=== PATIENT | female | born 1970 | race Caucasian/White ===

== ENCOUNTER 2017-11-10 10:24 | Inpatient (IN) | payer BC ==
[2017-11-10] MEDS ORDERED: Acetaminophen 500 MG Tab PO ONE (11:00)
[2017-11-10] MEDS ORDERED: Scopolamine 1.5 MG Transdermal Patch TOP SCH (11:00)
[2017-11-10] MEDS ORDERED: Dextrose 5%-Lactated Ringers 1,000 ML IV SCH (11:45)
[2017-11-10] MEDS ORDERED: fentaNYL 250 MCG/5 ML SDV ONE ×2 (11:58→13:00)
[2017-11-10] MEDS ORDERED: Propofol 200 MG/20 ML SDV ONE (11:59)
[2017-11-10] MEDS ORDERED: Dexamethasone 4 MG/ML SDV ONE (11:59)
[2017-11-10] MEDS ORDERED: Rocuronium 50 MG/5 ML Vial ONE (11:59)
[2017-11-10] MEDS ORDERED: Ondansetron 4 MG/2 ML SDV ONE (11:59)
[2017-11-10] MEDS ORDERED: Glycopyrrolate 0.2 MG/ML 5 ML MDV ONE (11:59)
[2017-11-10] MEDS ORDERED: Neostigmine Methylsulfate 1 MG/ML 5 ML Syringe ONE (11:59)
[2017-11-10] MEDS ORDERED: Succinylcholine 200 MG/10 ML MDV ONE (11:59)
[2017-11-10] MEDS ORDERED: Ketamine 500 MG/5 ML MDV IV SCH (12:00)
[2017-11-10] MEDS ORDERED: ceFAZolin 2 GM in Sodium Chloride 0.9% 50 ML IV ONE (12:00)
[2017-11-10] MEDS ORDERED: Ropivacaine 50 ML, Dexamethasone 8 MG, EPINEPHrine 0.4 MG, Sodium Chloride 0.9% 27.6 ML NERVRT SCH ×4 (12:00)
[2017-11-10] MEDS ORDERED: HYDROmorphone/Normal Saline 15 MG/30 ML PCA IV PRN (12:45)
[2017-11-10] MEDS ORDERED: Naloxone 0.4 MG/ML SDV IV PRN (12:52)
[2017-11-10] MEDS ORDERED: Lidocaine 2% 100 MG/5 ML Syringe ONE (13:16)
[2017-11-10] MEDS ORDERED: Lactated Ringers 1,000 ML ONE (13:17)
[2017-11-10] MEDS ORDERED: Labetalol 20 MG/4 ML Syringe ONE (13:41)
[2017-11-10] MEDS ORDERED: Ondansetron 4 MG/2 ML SDV IV PRN (15:36)
[2017-11-10] MEDS: Dextrose 5%-Lactated Ringers 1,000 ML IV SCH ×2 (15:37→22:49)
[2017-11-10] MEDS: VERIFY SCOP PATCH TOP SCH (17:13)
[2017-11-10] MEDS: Metoclopramide 10 MG/2 ML SDV IV SCH (17:13)
[2017-11-10] MEDS: Pantoprazole 40 MG Vial IV SCH (17:13)
[2017-11-10] MEDS: ceFAZolin 2 GM in Sodium Chloride 0.9% 50 ML IV SCH (20:47)
[2017-11-10] MEDS: Metoprolol Tartrate 50 MG Tab PO SCH (22:08)
[2017-11-11] MEDS: Metoclopramide 10 MG/2 ML SDV IV SCH ×3 (02:58→17:34)
[2017-11-11] MEDS: ceFAZolin 2 GM in Sodium Chloride 0.9% 50 ML IV SCH ×2 (03:01→12:58)
[2017-11-11] MEDS: Dextrose 5%-Lactated Ringers 1,000 ML IV SCH ×3 (06:04→22:55)
[2017-11-11] MEDS: Venlafaxine 37.5 MG Cap.ER PO SCH (08:04)
[2017-11-11] MEDS: Hydrochlorothiazide 25 MG Tab PO SCH (08:06)
[2017-11-11] MEDS: Metoprolol Tartrate 50 MG Tab PO SCH ×2 (08:07→20:21)
[2017-11-11] MEDS: VERIFY SCOP PATCH TOP SCH (08:09)
[2017-11-11] MEDS: Docusate Sodium 100 MG Cap PO SCH ×2 (12:54→20:21)
[2017-11-11] MEDS: Pantoprazole 40 MG Vial IV SCH (17:34)
[2017-11-11] MEDS ORDERED: Docusate Sodium 100 MG Cap PO SCH (21:00)
[2017-11-11] MEDS: Acetaminophen/oxyCODONE 325-5 MG Tab PO PRN (22:54)
[2017-11-12] MEDS: Metoclopramide 10 MG/2 ML SDV IV SCH (02:49)
[2017-11-12] MEDS: Acetaminophen/oxyCODONE 325-5 MG Tab PO PRN ×2 (02:49→07:34)
[2017-11-12 07:29] VITALS: BP 108/61
[2017-11-12] MEDS: Venlafaxine 37.5 MG Cap.ER PO SCH (08:15)
[2017-11-12] MEDS: Metoprolol Tartrate 50 MG Tab PO SCH (08:15)
[2017-11-12] MEDS: Docusate Sodium 100 MG Cap PO SCH (08:16)
[2017-11-12] MEDS: Hydrochlorothiazide 25 MG Tab PO SCH (08:17)
[2017-11-12] MEDS: VERIFY SCOP PATCH TOP SCH (08:18)
--- NOTE | 2017-11-13 14:35 | PN ---
DATE OF SERVICE: 11/11/2017 The patient is postop day #1 from a laparoscopic Yesica fundoplication. No major problems were noted overnight. She is tolerating liquids satisfactorily. We will go up to a full- liquid diet, oral pain medication, likely will be ready for discharge home tomorrow. Nino Du MD /[id number]
--- NOTE | 2017-11-13 15:47 | DISCH ---
FINAL DIAGNOSES: 1. Gastroesophageal reflux disease refractory to medical management associated with paraesophageal diaphragmatic hernia. 2. Mediastinal lipoma. 3. Peritoneal nodule on the diaphragm, left of the esophagogastric junction. 4. History of attention-deficit disorder. 5. History of hypertension. OPERATIVE PROCEDURES: Diagnostic laparoscopy with: 1. Repair of paraesophageal diaphragmatic hernia with mesh with Yesica fundoplication. 2. Excision of peritoneal nodule adjacent to the esophagogastric junction. 3. Excision of mediastinal lipoma. HOSPITAL COURSE: This is a 47-year-old presenting with longstanding gastroesophageal reflux disease refractory to medical management. After preoperative evaluation and discussion, she wished to proceed with a Yesica fundoplication. This was done with repair of paraesophageal hernia with mesh. She also had a small peritoneal nodule adjacent to the esophagogastric junction which was excised for diagnostic purposes and excision of mediastinal lipoma. Postoperatively, no major problems were noted. Plan will be to discharge the patient to home at this time. Continue with full liquid diet for 2 weeks postoperatively. She will be given her usual home medications plus Percocet 5/325 mg 1 to 2 tabs q.4 hours p.r.n. pain, #40. She would be instructed to discontinue the Protonix after 1 week, and she has the scopolamine patch which she will be instructed to remove tomorrow. Level of activity was reviewed with the patient and follow up with Dr. Du in [facility] on 11/23/2017.
--- NOTE | 2017-11-17 10:53 | OR ---
DATE OF PROCEDURE: 11/10/2017 PREOPERATIVE DIAGNOSIS: Gastroesophageal reflux disease refractory to medical management. POSTOPERATIVE DIAGNOSES: 1. Paraesophageal diaphragmatic hernia with gastroesophageal reflux disease refractory to medical management. 2. Peritoneal nodule on the diaphragm left of the esophagogastric junction. 3. Mediastinal lipoma. OPERATIVE PROCEDURE: Diagnostic laparoscopy with: 1. Repair of paraesophageal diaphragmatic hernia with mesh including Yesica fundoplication (84409). 2. Excision of diaphragmatic peritoneal nodule (42808). 3. Excision of mediastinal lipoma (88449). ANESTHESIA: General. INDICATION FOR PROCEDURE: This is a 47-year-old female presenting with gastroesophageal reflux disease refractory to medical management. After preop evaluation and discussion, she wished to proceed with a Yesica fundoplication. Potential risks of the procedure including bleeding, infection, injury to underlying viscera, problems with fundoplication such as dysphagia, gas-bloat syndrome, disorders of gastric emptying rate, as well as possible incomplete relief and reflux symptoms were all reviewed, and the patient wishes to proceed. DETAILS OF THE PROCEDURE: The patient was taken to the operating room and placed in a supine position. After general endotracheal anesthesia was induced, converted to a lithotomy position. A Mulligan catheter was inserted, which was to be removed at the conclusion of the procedure and the abdomen was prepped and draped. A 15 cm inferior and 5 cm left of xiphoid process, transverse incision was made and the peritoneal cavity entered under direct vision with Optiview trocar, inflated to 15 mmHg pressure with CO2. Laparoscope was then reinserted. No underlying trocar insertion site injuries were seen. Following this, bilateral subcostal transversus abdominis plane block replaced with direct visualization of the needle on the correct plane and the standard solution injected bilaterally. Four additional trocars were placed across the mid abdomen and the liver was retracted anteriorly. The patient was noted to have roughly 3 mm peritoneal nodule over the diaphragm just left of the esophagogastric junction or esophageal hiatus. This was excised and sent for histologic evaluation. The patient was noted to have a significant paraesophageal component to hiatal hernia with prolapse of the gastric fundus at the anterior course of the esophagus and some omentum also up into that defect. This was reduced. The peritoneum overlying the size reflected downward. The peritoneum on the side of the distal esophagus was then incised with care taken to avoid injury to the vagus nerves. The esophagus was then freed up from the crura on each side and then retroesophageal window created. During course of the dissection a mediastinal lipoma was encountered and this was excised and sent as a separate specimen. The attachments to the esophagus were then freed up with a Harmonic scalpel to the point there was a roughly 5 cm intraabdominal esophageal length. The crural repair was accomplished with 0 Ethibond sutures reinforced with PTFE pledgets. Due to the size of the defect, size XT mesh was configured so it overlayed the crural repair and was fixed there with titanium tacking screws. The non-adherent side of the mesh was placed facing the esophagus. The greater omentum was then taken down from the greater curvature of the stomach, beginning around the midportion of the stomach. This dissection continued with the scalpel protruding through the short gastric vessels including the highest posterior short gastric vessels. This resulted in a nicely mobile fundus which was retrieved through the retroesophageal window. Anesthesia then placed a guide wire orally through the length of the esophagus into the stomach. Over this, a 54-Faroese Savary dilator was positioned. A 3-stitch 2 cm fundoplication was then accomplished with 0 Ethibond sutures reinforced with PTFE pledgets. Each of the sutures included bites of the underlying esophagus and all were affixed in position. The uppermost suture was then also incorporated to the overlying diaphragm and one additional suture to the left side of the fundoplication overlying the diaphragm with the same stitch pledget combination was then placed and at that point, the dilators were removed. The fundoplication was inspected and found to be satisfactorily floppy. At that point, the trocars were essentially removed and then the peritoneal cavity deflated. The incision was closed with 4-0 Vicryl skin stitch. Dressing was applied. The patient was taken to the recovery room in satisfactory condition. Nino Du MD /[id number]
== END 2017-11-12 09:15 | disposition home or self-care (01) | DRG 220 ==
LOC: JP.MS 10:24 → JP.SDS 10:24 → JP.MS 13:30 → EDSTATUS 13:30
PROVIDERS: ADMIT Surgery; ATTEND Surgery
PROC: 0DV44ZZ Restriction of Esophagogastric Junction, Percutaneous Endoscopic Approach (ICD-10-PCS; principal; 2017-11-10)
PROC: 0BQT4ZZ Repair Diaphragm, Percutaneous Endoscopic Approach (ICD-10-PCS; 2017-11-10)
PROC: 0DBW4ZX Excision of Peritoneum, Percutaneous Endoscopic Approach, Diagnostic (ICD-10-PCS; 2017-11-10)
PROC: 3E0T3BZ Introduction of Anesthetic Agent into Peripheral Nerves and Plexi, Percutaneous Approach (ICD-10-PCS; 2017-11-10)
PROC: 0WBC4ZX Excision of Mediastinum, Percutaneous Endoscopic Approach, Diagnostic (ICD-10-PCS; 2017-11-10)
DX: K21.9 Gastro-esophageal reflux disease without esophagitis (principal); K44.9 Diaphragmatic hernia without obstruction or gangrene; D17.79 Benign lipomatous neoplasm of other sites; K66.8 Other specified disorders of peritoneum; F98.8 Other specified behavioral and emotional disorders with onset usually occurring in childhood and adolescence; I10 Essential (primary) hypertension
CPT/HCPCS: 36415; 80053; 85027; 88304; 88305; 88341; 88342; 94762; A9270-GY; C1781; C9113; J0171; J0330; J0690; J1100; J1170; J2001; J2405; J2704; J2710; J2765; J2795; J3010; J3490; J7042; J7050; J7120

== ENCOUNTER 2020-10-07 06:22 | Day surgery (SDC) | payer BC ==
[2020-10-07] MEDS ORDERED: Lidocaine 1% with EPINEPHrine 1:100,000 50 ML MDV ONE (06:31)
[2020-10-07] MEDS ORDERED: Bupivacaine 0.5% 50 ML MDV ONE (06:31)
[2020-10-07] MEDS ORDERED: Acetaminophen 500 MG Tab PO ONE (06:45)
[2020-10-07] MEDS ORDERED: Propofol 200 MG/20 ML SDV ONE ×2 (06:52→07:48)
[2020-10-07] MEDS ORDERED: fentaNYL 100 MCG/2 ML SDV ONE (06:52)
[2020-10-07] MEDS ORDERED: Midazolam 1 MG/ML 2 ML SDV ONE (06:52)
[2020-10-07] MEDS ORDERED: Dextrose 5%-Lactated Ringers 1,000 ML IV SCH (07:00)
[2020-10-07] MEDS ORDERED: ceFAZolin 2 GM in Premix Bag 1 BAG IV ONE (07:30)
[2020-10-07 09:15] VITALS: BP 130/81; PULSE 52
--- NOTE | 2020-10-19 13:51 | OR ---
DATE OF PROCEDURE: 10/07/2020 SURGEON: Nino Du MD PREOPERATIVE DIAGNOSIS: New diagnosis of follicular lymphoma, requiring tissue for further tumor workup. POSTOPERATIVE DIAGNOSIS: New diagnosis of follicular lymphoma, requiring tissue for further tumor workup. OPERATIVE PROCEDURE: Right inguinal lymph node biopsy ([id number]). ANESTHESIA: Local plus IV sedation. INDICATION FOR PROCEDURE: The patient recently diagnosed with follicular lipoma. To further characterize the tumor, lymph node biopsy is requested. Potential risks including bleeding, infection, injury to nerves and/or following the procedure were reviewed and the patient wishes to proceed. DETAILS OF PROCEDURE: The patient was taken to the operating room and placed in a supine position. IV sedation was administered, after which the lower abdomen and groin areas were prepped and draped. The palpable lymph nodes in the right inguinal area were then identified and the skin overlying was anesthetized with 1% lidocaine mixed with Marcaine. Later, an incision just above the inguinal crease was then made and carried down through the skin and subcutaneous tissue. What appeared to be 2 confluent nodes measuring around 3 to 4 cm in total dimension were then excised using electrocautery. The lymphatic vessels specimen were divided and tied with 4-0 Vicryl ties and the specimen delivered from the field. A small edge of the sujey tissue was excised and sent for microbiologic workup. Incision was then closed with 3-0 and 4-0 Vicryl stitch deep and 4-0 Vicryl subcuticular stitch, and a surgical glue applied. The patient was taken to the recovery room in satisfactory condition. Nino Du MD /[id number]
== END 2020-10-07 09:15 | disposition home or self-care (01) ==
LOC: JP.SDS 06:22
PROVIDERS: ATTEND Surgery
DX: C82.95 Follicular lymphoma, unspecified, lymph nodes of inguinal region and lower limb (principal); I10 Essential (primary) hypertension
CPT/HCPCS: 38531; 87070; 87102; 87205; 88305; 88341; 88342; 88360; A9270; J0690; J2250; J2704; J3010; J3490; J7121

== ENCOUNTER 2020-10-16 06:26 | Day surgery (SDC) | payer BC ==
[2020-10-16] MEDS ORDERED: Acetaminophen 500 MG Tab PO ONE (06:30)
[2020-10-16] MEDS ORDERED: Bupivacaine 0.5% 50 ML MDV ONE (06:49)
[2020-10-16] MEDS ORDERED: Lidocaine 1% with EPINEPHrine 1:100,000 50 ML MDV ONE (06:50)
[2020-10-16] MEDS ORDERED: Dextrose 5%-Lactated Ringers 1,000 ML IV SCH (07:00)
[2020-10-16] MEDS ORDERED: Propofol 200 MG/20 ML SDV ONE ×5 (07:13→08:32)
[2020-10-16] MEDS ORDERED: fentaNYL 100 MCG/2 ML SDV ONE (07:13)
[2020-10-16] MEDS ORDERED: Midazolam 1 MG/ML 2 ML SDV ONE ×2 (07:13→08:18)
[2020-10-16] MEDS ORDERED: Linezolid 600 MG in Premix Bag 1 BAG IV ONE (07:45)
[2020-10-16 09:38] VITALS: BP 124/76; PULSE 57
--- NOTE | 2020-10-27 15:13 | OR ---
DATE OF PROCEDURE: 10/16/2020 SURGEON: Nino Du MD PREOPERATIVE DIAGNOSIS: Indication for central venous access. POSTOPERATIVE DIAGNOSIS: Indication for central venous access. OPERATIVE PROCEDURE: Placement of Bard port via right subclavian vein approach. ANESTHESIA: Local plus IV sedation. INDICATION FOR PROCEDURE: This is a 50-year-old presenting with a new diagnosis of lymphoma, will be receiving some upcoming chemotherapy. Given this, a central venous access was requested and the plan is to proceed with placement of Bard PowerPort. The potential risks including bleeding, infection, pneumohemothorax, or vascular injury were all reviewed along with possibility or problems with port becoming infected or occluded over time were all gone over and the patient wishes to proceed. DETAILS OF PROCEDURE: The patient was taken to the operating room and placed in a supine position. After IV sedation was administered, the upper chest and neck areas were prepped and draped. Initially, the left subclavian area was anesthetized with 1% lidocaine. The subclavian vein was cannulated several times, but we could not get past what appeared to be the area around the innominate vein to the superior vena cava junction. With the wire, I suspect there was probably some lymphadenopathy in that area which was precluding adequate passage of the wire through that area. Given this, attention was taken to the right side. Right subclavian vein was cannulated on this side. The wire was able to then be manipulated down into the superior vena cava. Some additional local was then injected and a transverse infraclavicular incision was made and carried down through the skin and subcutaneous tissue. Pocket was then constructed for placement of the port. The port was then assembled and cut such that the tip lay in the upper right atrium. Over the introducer and peel-away catheter system, the Bard port catheter was then placed. Fluoroscopy confirmed this to be within the right atrium, and at that point, the port site was closed with 2 layers of 3-0 Vicryl stitch deep and 4-0 Vicryl subcuticular stitch. Prior to conclusion of the procedure, port was aspirated and good blood return was confirmed and once again flushed with heparinized saline. The patient tolerated the procedure well. Nino Du MD /[id number]
== END 2020-10-16 09:55 | disposition home or self-care (01) ==
LOC: JP.SDS 06:26
PROVIDERS: ATTEND Surgery
DX: C85.90 Non-Hodgkin lymphoma, unspecified, unspecified site (principal); I10 Essential (primary) hypertension; Z87.891 Personal history of nicotine dependence
CPT/HCPCS: 36561; A9270; C1788; J1642; J2020; J2250; J2704; J3010; J3490; J7121

== ENCOUNTER 2020-10-31 08:56 | Emergency (ER) | payer BC ==
[2020-10-31] MEDS ORDERED: Lactated Ringers 500 ML IV SCH (10:00)
[2020-10-31] MEDS ORDERED: Potassium Chloride 20 MEQ Tab.ER PO ONE (10:01)
--- NOTE | 2020-10-31 10:34 | EDM.PDOC ---
ED HPI GENERAL MEDICAL PROBLEM - General Chief Complaint: Cardiovascular Problem Stated Complaint: LOW PULSE Time Seen by Provider: 10/31/20 10:10 Source of Information: Reports: Patient, Old Records, RN History Limitations: Reports: No Limitations - History of Present Illness INITIAL COMMENTS - FREE TEXT/NARRATIVE: 50 yo female with a pHx of PVC's presents from infusion therapy for bradycardia with PVC's. Her HR was down into the mid to upper 30's for them. She is on metoprolol tartrate prescribed several yrs ago for her PVC's and sometime ago due a sense by her that the dose was too high the dose was changed from 100 mg bid to 100 mg qd. She takes this med in the morning only since then. She is being tx'd in infusion tx with Bendamustine/Rituxan for follicular cell lymphoma dx this past May. Onset: Unknown/Unsure (was noted to possibly be a change from what had been observed in infusion tx in the past. 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 (see below) (Had 500 ml of NS in infusion tx b efore ER arrival) - Related Data Allergies Allergy/AdvReac Type Severity Reaction Status Date / Time No Known Allergies Allergy Verified 10/31/20 09:29 Home Meds: Home Meds Metoprolol Tartrate 100 mg PO DAILY 12/25/12 [History] hydroCHLOROthiazide [Hydrochlorothiazide] 25 mg PO DAILY 12/25/12 [History] Halobetasol Propionate 1 applic TOP BID PRN 09/30/17 [History] Acyclovir 400 mg PO DAILY 10/15/20 [History] Indomethacin [Indocin] 50 mg PO TID PRN 10/15/20 [History] Ondansetron [Zofran] 8 mg PO Q8H PRN 10/15/20 [History] Prochlorperazine [Compazine] 10 mg PO Q6H PRN 10/15/20 [History] Sulfamethoxazole/Trimethoprim [Sulfamethoxazole-Tmp Ds Tablet] 1 tab PO MOWEFR 10/15/20 [History] allopurinoL [Zyloprim] 300 mg PO BID 10/15/20 [History] Ciprofloxacin [Ciprofloxacin HCl] 500 mg PO ASDIRECTED PRN 10/16/20 [History] Past Medical History HEENT History: Reports: Impaired Vision Cardiovascular History: Reports: Arrhythmia, Hypertension Gastrointestinal History: Reports: Gastritis, GERD, Other (See Below) Other Gastrointestinal History: Hx of Barretts esophagus Genitourinary History: Reports: None 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: Dysfunctional Uterine Bleeding, Fibroids, Musculoskeletal History: Reports: Gout, Other (See Below) Other Musculoskeletal History: L foot pain Psychiatric History: Reports: ADHD Endocrine/Metabolic History: Reports: Obesity/BMI 30+ Oncologic (Cancer) History: Reports: Lymphoma Dermatologic History: Reports: Eczema Other Dermatologic History: generalized rash - Infectious Disease History Infectious Disease History: Reports: Chicken Pox - Past Surgical History HEENT Surgical History: Reports: LASIK Cardiovascular Surgical History: Reports: None GI Surgical History: Reports: EGD, Yesica Fundoplication, Other (See Below) Other GI Surgeries/Procedures: Browne pH Female Surgical History: Reports: Breast Biopsy, Hysterectomy, Salpingo- Oophorectomy Endocrine Surgical History: Reports: None Dermatological Surgical History: Reports: Other (See Below) Social & Family History - Family History Family Medical History: No Pertinent Family History HEENT: Reports: None - Tobacco Use Tobacco Use Status *Q: Current Some Day Tobacco User Years of Tobacco use: 30 Packs/Tins Daily: 0.1 - Caffeine Use Caffeine Use: Reports: Coffee Other Caffeine Use: 2-4 cups coffee per day - Alcohol Use Days Per Week of Alcohol Use: 3 Number of Drinks Per Day: 2 Total Drinks Per Week: 6 - Recreational Drug Use Recreational Drug Use: No ED ROS GENERAL - Review of Systems Review Of Systems: See Below Constitutional: Reports: Other (felt a little shaky today) HEENT: Reports: No Symptoms Respiratory: Reports: No Symptoms Cardiovascular: Reports: No Symptoms. Denies: Palpitations (is unaware) Endocrine: Reports: No Symptoms GI/Abdominal: Reports: No Symptoms : Reports: No Symptoms Musculoskeletal: Reports: No Symptoms Skin: Reports: No Symptoms Neurological: Reports: No Symptoms Psychiatric: Reports: No Symptoms ED EXAM, GENERAL - Physical Exam Exam: See Below Exam Limited By: No Limitations General Appearance: Alert, WD/WN, No Apparent Distress Eye Exam: Bilateral Eye: Normal Inspection Ears: Normal External Exam, Normal Canal, Hearing Grossly Normal Ear Exam: Bilateral Ear: Auricle Normal, Canal Normal Nose: Normal Inspection, No Blood Throat/Mouth: Normal Inspection, Normal Lips, Normal Voice, No Airway Compromise Head: Atraumatic, Normocephalic Neck: Normal Inspection Respiratory/Chest: No Respiratory Distress, Lungs Clear, Normal Breath Sounds, No Accessory Muscle Use Cardiovascular: Regular Rate, Rhythm, No Edema, Other (extra beats noted, HR has increased since being in infusion therapy) Extremities: Normal Inspection Neurological: Alert, Oriented, CN II-XII Intact, Normal Cognition, No Motor/Sensory Deficits Psychiatric: Normal Affect, Normal Mood Skin Exam: Warm, Dry, Intact, Normal Color, No Rash Course - Vital Signs Last Recorded V/S: Last Vital Signs Temp 36.8 C 10/31/20 09:35 Pulse 66 10/31/20 10:59 Resp 18 10/31/20 09:35 BP 124/74 10/31/20 10:59 Pulse Ox 99 10/31/20 10:59 - Orders/Labs/Meds Orders: Active Orders 24 hr Category Date Time Status Cardiac Monitoring [RC] .As Directed Care 10/31/20 09:48 Active Lactated Ringers [Ringers, Lactated] 500 ml Med 10/31/20 10:00 Active IV ASDIRECTED Medication Orders Lactated Ringer's (Ringers, Lactated) 500 mls @ 1,000 mls/hr IV ASDIRECTED IGNACIO Last Admin: 10/31/20 10:21 Dose: 1,000 mls/hr Documented by: [email or web address] Labs: Laboratory Tests 10/31/20 10/31/20 10/31/20 Range/Units 08:24 08:24 08:24 Magnesium 1.5 L (1.8-2.4) mg/dL Troponin I < 0.017 (0.000-0.056) ng/mL TSH, Ultra Sensitive 4.159 H (0.358-3.740) uIU/mL Meds: Medications Generic Name Dose Route Start Last Admin Trade Name Freq PRN Reason Stop Dose Admin Lactated Ringer's 500 mls @ 1,000 mls/hr 10/31/20 10:00 10/31/20 10:21 Ringers, Lactated IV 1,000 mls/hr ASDIRECTED IGNACIO Administration Discontinued Medications Generic Name Dose Route Start Last Admin Trade Name Fredy PRN Reason Stop Dose Admin Magnesium Sulfate 2 gm/ Premix 50 mls @ 25 mls/hr 10/31/20 10:39 10/31/20 10:57 IV 10/31/20 12:38 25 mls/hr ONETIME ONE Administration Magnesium Oxide 800 mg 10/31/20 10:39 10/31/20 10:48 Magnesium Oxide 400 Mg Tab PO 10/31/20 10:40 800 mg ONETIME ONE Administration Potassium Chloride 20 meq 10/31/20 10:01 10/31/20 10:21 Potassium Chloride 20 Meq Tab.Er PO 10/31/20 10:02 20 meq ONETIME ONE Administration - Re-Assessments/Exams Free Text/Narrative Re-Assessment/Exam: 10/31/20 13:21 Appears to have a lot less PVC's after supplementing with magnesium IV and orally. Will order a Holter and discharge on a switch to the succinate form of metoprolol as well as magnesium supplementation. Departure - Departure Time of Disposition: 13:25 Disposition: Home, Self-Care 01 Condition: Good Clinical Impression: PVC's (premature ventricular contractions), Hypomagnesemia Instructions: Hypomagnesemia, Premature Ventricular Contraction Referrals: Millie Cuellar PA [Primary Care Provider] - Forms: ED Department Discharge Additional Instructions: Replace your metoprolol tartrate with metoprolol succinate. Take a magnesium supplement 500 mg every day before bed. I have ordered a Holter monitor for you, turn this in for analysis afterwards. F/U later with either your primary or cardiology(may need a referral from your doctor if they feel it is needed). Return as needed. Sepsis Event Note (ED) - Evaluation Sepsis Screening Result: No Definite Risk - Focused Exam Vital Signs: Vital Signs Temp Pulse Resp BP Pulse Ox 10/31/20 10:59 66 124/74 99 10/31/20 09:35 36.8 C 45 L 18 115/70 98 10/31/20 09:23 36.8 C 45 L 18 115/70 98 - My Orders Last 24 Hours: My Active Orders 10/31/20 09:48 Cardiac Monitoring [RC] .As Directed 10/31/20 10:00 Lactated Ringers [Ringers, Lactated] 500 ml IV ASDIRECTED - Assessment/Plan Last 24 Hours: My Active Orders 10/31/20 09:48 Cardiac Monitoring [RC] .As Directed 10/31/20 10:00 Lactated Ringers [Ringers, Lactated] 500 ml IV ASDIRECTED
[2020-10-31] MEDS ORDERED: Magnesium Oxide 400 MG Tab PO ONE (10:39)
[2020-10-31] MEDS ORDERED: Magnesium Sulfate/Water 2 GM in Premix Bag 1 BAG IV ONE (10:39)
[2020-10-31 13:23] VITALS: BP 112/42; PULSE 48
== END 2020-10-31 14:10 | disposition home or self-care (01) ==
LOC: JP.ED 08:56
DX: I49.3 Ventricular premature depolarization (principal); E83.42 Hypomagnesemia; M10.9 Gout, unspecified; E66.9 Obesity, unspecified; Z72.0 Tobacco use; Z79.899 Other long term (current) drug therapy; Z68.34 Body mass index [BMI] 34.0-34.9, adult
CPT/HCPCS: 36415; 83735; 84443; 84484; 93225; 93226; 96365; 96366; 99284; A9270; J3475; J7120

== ENCOUNTER 2022-11-18 05:53 | Day surgery (SDC) | payer BC ==
[2022-11-18] MEDS ORDERED: Bupivacaine 0.5% 50 ML MDV ONE (06:37)
[2022-11-18] MEDS ORDERED: Lidocaine 1% with EPINEPHrine 1:100,000 50 ML MDV ONE (06:38)
[2022-11-18] MEDS ORDERED: Bacitracin Oint 1 GM U/D Packet ONE (06:39)
[2022-11-18] MEDS ORDERED: Dextrose 5%-Lactated Ringers 1,000 ML IV SCH (07:00)
[2022-11-18] MEDS ORDERED: fentaNYL 100 MCG/2 ML SDV ONE (07:10)
[2022-11-18] MEDS ORDERED: Midazolam 1 MG/ML 2 ML SDV ONE (07:10)
[2022-11-18] MEDS ORDERED: Propofol 200 MG/20 ML SDV ONE ×2 (07:10→08:12)
[2022-11-18] MEDS ORDERED: ceFAZolin 2 GM in Premix Bag 1 BAG IV ONE (07:30)
[2022-11-18 08:47] VITALS: PULSE 68
[2022-11-18 08:56] VITALS: BP 99/71
== END 2022-11-18 09:23 | disposition home or self-care (01) ==
LOC: JP.SDS 05:53
PROVIDERS: ATTEND Surgery
DX: C82.45 Follicular lymphoma grade IIIb, lymph nodes of inguinal region and lower limb (principal); I10 Essential (primary) hypertension; K21.9 Gastro-esophageal reflux disease without esophagitis; E66.9 Obesity, unspecified; Z88.8 Allergy status to other drugs, medicaments and biological substances
CPT/HCPCS: 38531; 87015; 87070; 87075; 87102; 87116; 87205; 87206; 87220; 88307; 88341; 88342; 88360; J0690; J1642; J2250; J2704; J3010; J3490; J7121